=== PATIENT | female | born 1985 | race African-American/Black ===

== ENCOUNTER 2017-01-07 20:57 | Emergency (ER) | payer MEDICAID ==
[~2017-01-07] VITALS: Ht 162.6 cm; Wt 132.0 kg
[~2017-01-07 20:57] MED LIST: ALBU2.5V13 IH
[2017-01-07] MEDS ORDERED: PREDNISONE 20MG TABLET PO STA (21:27)
[2017-01-07] MEDS: ALBUTEROL (0.083%) 2.5MG/3ML NEB HHN SCH ×3 (21:45→22:45)
[2017-01-07 23:10] VITALS: BP 99/72
== END 2017-01-08 | disposition home or self-care (01) ==
LOC: ER 21:18
DX: J45.901 Unspecified asthma with (acute) exacerbation (principal); Z79.899 Other long term (current) drug therapy; Z91.011 Allergy to milk products; F12.10 Cannabis abuse, uncomplicated
CPT/HCPCS: 71010; 81025; 94640; 99284; 99406; J7512; J7611; 99283

== ENCOUNTER 2017-03-04 21:50 | Emergency (ER) | payer MEDICAID ==
[~2017-03-04] VITALS: Ht 162.6 cm; Wt 91.0 kg
[2017-03-04] MEDS ORDERED: IPRATROPIUM BROMIDE (0.02%) 0.5MG/2.5ML NEB HHN STA (23:05)
[2017-03-04] MEDS ORDERED: ALBUTEROL (0.083%) 2.5MG/3ML NEB HHN STA (23:05)
[2017-03-04] MEDS ORDERED: SODIUM CHLORIDE 0.9% 1,000 ML IV ONE (23:05)
[2017-03-04] MEDS ORDERED: METHYLPREDNISOLONE SOD SUCC 125 MG/2 ML VIAL IV STA (23:05)
[2017-03-04] MEDS ORDERED: MAGNESIUM 2 G PREMIX 50 ML IV ONE (23:15)
[2017-03-04 23:31] LABS: BASOPHILS % 1.2 % (0.0-2.0); EOSINOPHILS % 4.9 % (0.0-5.0); HEMATOCRIT. 34.7 % (36.0-48.0); HEMOGLOBIN. 12.2 g/dL (12.0-16.0); MEAN CORPUSCULAR VOLUME 85.2 fL (81.0-99.0); MONOCYTES % 6.7 % (2.0-8.0); NEUTROPHILS % 37.2 % (40.0-76.0); PLATELET 206 x1000/uL (130-400); RED BLOOD CELL COUNT 4.07 mill/uL (4.2-5.4); RED CELL DISTRIBUTION WIDTH 15.2 % (11.6-14.6)
[2017-03-04 23:43] LABS: CARBON DIOXIDE 26 mEq/L (21-32); CHLORIDE 105 mEq/L (98-107)
[2017-03-05 01:51] VITALS: BP 126/76
== END 2017-03-05 02:03 | disposition home or self-care (01) ==
LOC: ER 21:50
DX: J45.901 Unspecified asthma with (acute) exacerbation (principal); Z98.51 Tubal ligation status; Z91.011 Allergy to milk products
CPT/HCPCS: 36415; 71010; 80048; 81025; 85025; 96365; 96375; 99285; J2930; J3475; J7030; Z7610